=== PATIENT | female | born 1995 | race Hispanic/Latino ===

== ENCOUNTER 2019-09-25 16:38 | Emergency (ER) | payer MEDICAID, OTHER ==
[~2019-09-25 16:38] MED LIST: IBUP-2077 PO; LEVE-43 PO
[2019-09-25 17:33] LABS: BASOPHILS % (AUTO) 0.3 % (0.0-5.0); EOSINOPHILS % (AUTO) 0.4 % (0.0-8.0); HEMATOCRIT 33.3 % (36-48); LYMPHOCYTES % (AUTO) 20.2 % (21.0-51.0); MEAN CORPUSCULAR HEMOGLOBIN 29.5 pg (27.0-33.0); MEAN CORPUSCULAR HGB CONC 34.2 g/dL (32.0-36.0); MEAN CORPUSCULAR VOLUME 86.3 fL (79-99); MONOCYTES % (AUTO) 5.8 % (3.0-13.0); PLATELET COUNT (AUTO) 326 K/uL (130-400); RED BLOOD CELL COUNT(AUTO) 3.86 MIL/uL (4.00-5.50); RED CELL DISTRIBUTION WIDTH 12.5 % (11.0-15.5); WHITE BLOOD COUNT (AUTO) 7.7 K/uL (4.8-10.8)
== END 2019-09-25 18:48 | disposition home or self-care (01) ==
LOC: EDH 16:38
DX: O20.0 Threatened abortion (principal); Z3A.15 15 weeks gestation of pregnancy
CPT/HCPCS: 36415; 85025; 86900; 86901

== ENCOUNTER 2020-04-03 05:28 | Inpatient (IN) | payer MEDICAID ==
[~2020-04-03] VITALS: Ht 149.9 cm; Wt 75.7 kg
[2020-04-03] MEDS ORDERED: LACTATED RINGERS 1000ML 1,000 ML IV PRN (10:05)
[2020-04-03] MEDS ORDERED: METHYLERGONOVINE MALEATE 0.2 MG/1 ML ML IM PRN (10:15)
[2020-04-03] MEDS ORDERED: OXYTOCIN 10 USP UNITS/ML 20 UNIT in LACTATED RINGERS 1000ML 1,000 ML IV SCH (10:15)
[2020-04-03] MEDS ORDERED: OXYTOCIN-LR 20 UNITS/1000 ML 1,000 ML IV SCH (10:15)
[2020-04-03] MEDS ORDERED: LIDOCAINE HCL 1% 20 ML VIAL INJ PRN (10:15)
[2020-04-03] MEDS ORDERED: MISOPROSTOL 200 MCG TABLET VG PRN (10:15)
[2020-04-03 11:24] LABS: APPEARANCE,URINE Clear (CLEAR); BILIRUBIN,URINE Negative (NEGATIVE); COLOR,URINE Yellow (YELLOW); GLUCOSE, URINE (UA) Negative (NEGATIVE); KETONES,URINE Negative (NEGATIVE); LEUKOCYTE ESTERASE ,URINE Large (NEGATIVE); NITRATE,URINE Negative (NEGATIVE); OCCULT BLOOD,URINE Negative (NEGATIVE); PROTEIN,URINE Negative (NEGATIVE)
[2020-04-03 11:26] LABS: HEMATOCRIT 24.9 % (36-48); MEAN CORPUSCULAR HEMOGLOBIN 25.6 pg (27.0-33.0); MEAN CORPUSCULAR HGB CONC 31.3 g/dL (32.0-36.0); MEAN CORPUSCULAR VOLUME 81.6 fL (79-99); RED BLOOD CELL COUNT(AUTO) 3.05 MIL/uL (4.00-5.50); RED CELL DISTRIBUTION WIDTH 15.4 % (11.0-15.5); WHITE BLOOD COUNT (AUTO) 7.4 K/uL (4.8-10.8)
[2020-04-03 11:57] LABS: BACTERIA,URINE Rare /HPF (None Seen); RBC,URINE 0-1 /HPF (0-1); SQUAMOUS EPITHELIAL CELL,UR Few /HPF (0-2); TRICHOMONAS,URINE Few /LPF (None Seen); WBC,URINE 0-1 /HPF (0-1)
[2020-04-03 11:58] LABS: MUCUS,URINE Rare LPF (None Seen)
[2020-04-03] MEDS ORDERED: PROMETHAZINE HCL 25 MG/ML 1ML AMPULE IM SCH (17:00)
[2020-04-03] MEDS ORDERED: MEPERIDINE-PF 50 MG/ML SYG IVP SCH (17:00)
[2020-04-03] MEDS ORDERED: MEPERIDINE-PF 50 MG/ML SYG ONE (17:00)
[2020-04-03] MEDS ORDERED: LEVE-43 PO (17:44)
[2020-04-03] MEDS ORDERED: ACETAMINOPHEN 325 MG TAB PO PRN (17:45)
[2020-04-03] MEDS ORDERED: LANOLIN 30GM OINTMENT TP PRN (17:45)
[2020-04-03] MEDS ORDERED: ACETAMINOPHEN-CODEINE 300/30MG TAB PO PRN (17:45)
[2020-04-03] MEDS ORDERED: WITCH HAZEL 1 PAD TP PRN (17:45)
[2020-04-03] MEDS ORDERED: BENZOCAINE/LANOLIN/ALOE VERA 60 ML AEROSOL TP PRN (17:45)
[2020-04-03] MEDS ORDERED: DIPH,PERTUSS(ACELL),TET VAC/PF 0.5 ML VIAL IM PRN (17:45)
[2020-04-03] MEDS ORDERED: MEASLES/MUMPS/RUBELLA VACCINE, LIVE 0.5 ML/VIAL SQ PRN (17:45)
[2020-04-03] MEDS ORDERED: IBUPROFEN 600 MG TABLET PO PRN (17:45)
[2020-04-03 18:18] LABS: AMPHET/METH SCREEN,URINE NEGATIVE (NEGATIVE); BARBITURATE SCREEN, URINE NEGATIVE (NEGATIVE); BENZODIAZEPINES SCREEN,URINE POSITIVE (NEGATIVE); CANNABINOID SCREEN,URINE NEGATIVE (NEGATIVE); COCAINE SCREEN,URINE NEGATIVE (NEGATIVE); OPIATE SCREEN,URINE NEGATIVE (NEGATIVE); PHENCYCLIDINE SCREEN,URINE NEGATIVE (NEGATIVE)
--- NOTE | 2020-04-03 20:10 | NUR ---
Report received from Sharda Hayes RN Patient received via wheelchair accompanied by Sharda Hayes and Darlyn Chicas, remote sensing research scientist. She has an IV of LR infusing regulated at ml/hour. Plan of care discussed with patient, she verbalizes understanding. at 2024 patient assisted to the bathroom to void with red tinge urine. Fundus firm at 1 finger above the umbilicus.
[2020-04-03 20:42] VITALS: BP 121/65
[2020-04-03] MEDS: DOCUSATE SODIUM 100 MG CAP PO SCH (21:09)
[2020-04-03] MEDS: LEVETIRACETAM 500 MG TABLET PO SCH (21:10)
[2020-04-03 23:32] VITALS: BP 109/69
[2020-04-04 04:28] VITALS: BP 94/59
[2020-04-04 06:46] LABS: HEMATOCRIT 27.3 % (36-48); MEAN CORPUSCULAR HEMOGLOBIN 25.4 pg (27.0-33.0); MEAN CORPUSCULAR HGB CONC 31.5 g/dL (32.0-36.0); MEAN CORPUSCULAR VOLUME 80.8 fL (79-99); RED BLOOD CELL COUNT(AUTO) 3.38 MIL/uL (4.00-5.50); RED CELL DISTRIBUTION WIDTH 15.4 % (11.0-15.5)
[2020-04-04 07:27] VITALS: BP 101/61
[2020-04-04] MEDS: LEVETIRACETAM 500 MG TABLET PO SCH ×2 (09:13→13:31)
[2020-04-04] MEDS: DOCUSATE SODIUM 100 MG CAP PO SCH (09:13)
[2020-04-04 09:19] LABS: RAPID PLASMA REAGIN NONREACTIVE (NONREACTIVE)
[2020-04-04 10:13] LABS: HEPATITIS Bs ANTIGEN SCREEN P Negative (Negative)
[2020-04-04 11:44] VITALS: BP 118/72
--- NOTE | 2020-04-04 11:55 | NUR ---
SS Eval/Positive UDS/Benzo NEVAEH met with pt. who reported that this is her fourth delivery and has named BB Miguel Cavazos. Pt. resides at home with her spouse Milan Cavazos and three other children ages, 8y, 2y and 1y all reportedly current with immunizations. Benefits in place include Medicaid, WIC, [place]/513.monthly and carseat in place. Pt. reports all utilities connected in the home and family has own transportation. Community Worker is Dr. Quintanilla. Pt. is not employed outside the home and [employer] is a providers. Pt. reports a strong support system among family stating that her mother assists when needed. Pt. denied any history of Depression, Domestic Violence, ETOH or Tobacco use. NEVAEH informed pt. of report of positive Cocaine during labs on 02/20/2020. Pt. admitted to history of Cocaine use but denied using since early . Admits to using prescribed Xanax for seizures by Neurologist in [place]. Pt. aware that tested positive for Benzo and will remain hospitalized for monitoring. NEVAEH spoke with pt. about mandated reporting to CPS for positive UDS; pt. verbalized an understanding and voiced remorse. Pt. stated that she will cooperate with CPS. SW will continue to follow for plan of care. Addendum: 04/04/20 at 1821 by GRISEL BYRD Amended: Links added.
--- NOTE | 2020-04-04 12:22 | NUR ---
CPS Report Report made to CPS by this worker for positive UDS/Benzo and positive UDS Cocaine on visit dated 02/20/2020. Alexis/ostrich farm worker/[id number]; Reference #[id number] CPS impregnating helper would contact mother within 48h. SW will continue to follow BB through discharge; pending Safety Plan/Plan of Care from CPS Pt. is cleared for discharge when medically cleared.
--- NOTE | 2020-04-04 13:30 | NUR ---
pt is discharged. verbal and written discharge instructions given, refer to exit care. informed of the follow up appointment, prescription given. informed to call the doctor for future concerns. pt voiced understanding to all things discussed. Addendum: 04/04/20 at 1342 by GEETA DOBSON RN Amended: Links added.
--- NOTE | 2020-04-04 15:30 | NUR ---
pt is dismissed in stable condition, brought to private car via wheelchair by Hiwot Corea pcp Addendum: 04/04/20 at 1549 by GEETA DOBSON RN Amended: Links added.
== END 2020-04-04 15:30 | disposition home or self-care (01) | DRG 560 ==
LOC: LDH 05:28 → WSH 20:15
PROVIDERS: ADMIT Specialist; ATTEND Specialist
PROC: 10E0XZZ Delivery of Products of Conception, External Approach (ICD-10-PCS; principal; 2020-04-03)
PROC: 3E0234Z Introduction of Serum, Toxoid and Vaccine into Muscle, Percutaneous Approach (ICD-10-PCS; 2020-04-03)
PROC: 3E0134Z Introduction of Serum, Toxoid and Vaccine into Subcutaneous Tissue, Percutaneous Approach (ICD-10-PCS; 2020-04-03)
DX: O99.354 Diseases of the nervous system complicating childbirth (principal); Z3A.39 39 weeks gestation of pregnancy; Z37.0 Single live birth; G40.909 Epilepsy, unspecified, not intractable, without status epilepticus; Z23 Encounter for immunization
CPT/HCPCS: 36415; 80305; 81001; 85027; 86592; 86701; 86850; 86900; 86901; 87088; 87340; 87390; 90715; A4351; G0378; J2175; J2590

== ENCOUNTER 2020-06-19 07:28 | Day surgery (SDC) | payer MEDICAID ==
[2020-06-19] VITALS (19 sets, daily range): BP systolic 104–148; BP diastolic 57–81
[~2020-06-19 07:28] MED LIST changes: -IBUP-2077 PO; -LEVE-43 PO; +LEVE250T PO
[2020-06-19] MEDS ORDERED: LACTATED RINGERS 1000ML 1,000 ML IV ONE (08:33)
--- NOTE | 2020-06-19 09:07 | NUR ---
PT STATES LAST SEIZURE EPISODE WAS 8 MONTHS AGO
[2020-06-19] MEDS ORDERED: ONDANSETRON HCL 4 MG/2 ML VIAL ONE ×2 (11:10→13:09)
[2020-06-19] MEDS ORDERED: PROPOFOL 10 MG/ML 20ML VIAL IV ONE (11:10)
[2020-06-19] MEDS ORDERED: SUCCINYLCHOLINE 200MG/10ML SYR ONE (11:10)
[2020-06-19] MEDS ORDERED: LIDOCAINE PF 2% 5ML ABBOJECT ONE (11:10)
[2020-06-19] MEDS ORDERED: DEXAMETHASONE SOD PHOSPHATE 10MG/ML 1ML VIAL ONE (11:10)
[2020-06-19] MEDS ORDERED: MIDAZOLAM HCL 1 MG/ML 2ML VIAL ONE (11:11)
[2020-06-19] MEDS ORDERED: FENTANYL CITRATE PF 50 MCG/1 ML 2ML VIAL ONE (11:11)
[2020-06-19] MEDS ORDERED: ROCURONIUM 10MG/1ML SYR 10 MG/ML ML ONE (11:11)
[2020-06-19] MEDS ORDERED: GLYCOPYRROLATE 1 MG/5 ML SYRINGE ONE (11:50)
[2020-06-19] MEDS ORDERED: NEOSTIGMINE 5MG/5ML SYR IV ONE (11:51)
[2020-06-19] MEDS ORDERED: MEPERIDINE-PF 25 MG/ML SYG ONE ×2 (12:11→12:29)
--- NOTE | 2020-06-19 13:05 | NUR ---
Pt received Pt received from PACU via stretcher accompanied by Dulce Hough RN. Pt awake but drowsy; able to follow command. Pt has 2 band aid dressings to mid abdomen; dry and intact. VS wnl.
--- NOTE | 2020-06-19 13:10 | NUR ---
Pt with nausea Pt c/o nausea; no vomiting noted. Pt was then medicated with Zofran as ordered. No seizure activity noted. Both side rails padded for safety.
--- NOTE | 2020-06-19 13:40 | NUR ---
F/U Pt resting in bed at this time. No n/v noted.
--- NOTE | 2020-06-19 14:55 | NUR ---
D/C Pt was prepared for discharge. Pt with no n/v. Verbal discharge instructions given to mother and pt. Gave pt written discharge instructions with f/u appointment info and rx . Verbalized understanding. All questions and concerns addressed. Dressings remained dry and intact.
== END 2020-06-19 15:05 ==
LOC: DAH 07:28
PROVIDERS: ATTEND Specialist
DX: Z30.2 Encounter for sterilization (principal); F31.9 Bipolar disorder, unspecified; Z20.828 Contact with and (suspected) exposure to other viral communicable diseases
CPT/HCPCS: 36415; 58671; 81025; 85025; 86850; 86900; 86901; A4215 ×2; A4221; A4222; A4223; A4264; A4351; A4663; A6260; C1769 ×2; C9803; J0330; J1100; J2001; J2175 ×2; J2250; J2405 ×2; J2704; J2710; J3010; J3490; J7030; J7120; U0003